=== PATIENT | female | born 1965 | race Caucasian/White ===

== ENCOUNTER 2018-12-03 07:12 | Day surgery (SDC) | payer OTHER ==
[2018-12-03] VITALS (10 sets, daily range): BP systolic 90–153; BP diastolic 57–79; PULSE 62–75; RESP 10–18; Ht 157.5 cm; Wt 81.8 kg
[~2018-12-03] VITALS: Ht 157.5 cm; Wt 81.8 kg
[~2018-12-03 07:12] MED LIST: CEFAZOLIN 2 GM/50 ML (PMX) 50 ML IVPB SCH; SOD CHLORIDE 0.9% 1,000 ML IV ONE
[2018-12-03] MEDS ORDERED: ACETAMINOPHEN 500 MG TAB PO ONE (07:30)
[2018-12-03] MEDS ORDERED: AMLO5TAB4 PO (08:10)
[2018-12-03] MEDS ORDERED: BENA1TAB PO (08:10)
[2018-12-03] MEDS ORDERED: RANI-513 PO (08:11)
--- NOTE | 2018-12-03 10:27 | PREAC ---
Date/Time of Note Date/Time of Note DATE: 12/03/18 TIME: 10:26 Anesthesia Eval and Record Evaluation Time Pre-Procedure Interview DATE: 12/03/18 TIME: 10:26 Age 53 Sex female NPO: 8 hrs Preoperative diagnosis L SQ control device Planned procedure L SQ control device excision under fluoroscopy Past Medical History Past Medical History: Includes Cardio: HTN GI: Obesity Surgery & Anesthesia Issues No known issue Meds Anticoagulation: No Beta Lu within 24 hr: No Reason Beta Lu not given: Pt. not on B-Lu Reported Medications Ranitidine Hcl* (Ranitidine Hcl*) 75 Mg Tablet, 75 MG PO BID PRN for HEARTBURN, #60 TAB 12/03/18 Amlodipine Besylate* (Norvasc*) 5 Mg Tablet, 5 MG PO DAILY, TAB 12/03/18 Benazepril/Hydrochlorothiazide (Lotensin Hct 10-12.5 mg Tablet) 1 Each Tablet, 1 TAB PO DAILY, #30 TAB 12/03/18 Current Medications Cefazolin Sodium/ Dextrose 50 ml @ 100 mls/hr PRE-OP IVPB ; Start 12/03/18 at 06:00; Stop 12/03/18 at 15:00 Sodium Chloride 1,000 ml @ 75 mls/hr [id number] ONCE IV Last administered on 12/03/18at 08:54; Admin Dose 75 MLS/HR; Start 12/03/18 at 06:00; Stop 12/03/18 at 19:19 Meds reviewed: Yes Allergies Coded Allergies: No Known Allergy (Unverified , 12/03/18) Allergies Reviewed: Yes Labs/Studies Labs Reviewed: Reviewed by anesthesiologist Result Diagram: 12/03/18 0904 12/03/18 0904 Laboratory Tests 12/03/18 09:04 test: Negative Pre-procedure Exam Last vitals Vital Signs Date Temp Pulse Resp B/P (MAP) Pulse Ox O2 O2 Flow FiO2 Time Delivery Rate 12/03/18 95.9 75 16 153/79 98 Room Air 09:07 (103) Airway: Adequate mouth opening, Adequate thyromental dist Mallampati: Mallampati II Teeth: Normal Lung: Normal Heart: Normal ASA Physical Status ASA physical status: 2 Emergency: None Planned Anesthetic General/MAC: LMA Pre-operative Attestations Prior to commencing anesthesia and surgery, the patient was re-evaluated, there was verification of: *The patient's identity *The results of appropriate recent lab work and preoperative vital signs *The above evaluation not changing prior to induction *Anesthetic plan, risk benefits, alternative and complications discussed with patient/family; questions answered; patient/family understands, accepts and wishes to proceed. Fashion Artist used AARTI MILLER December 03, 2018 10:27
[2018-12-03] MEDS ORDERED: ONDANSETRON 4 MG INJ IV PRN (10:30)
[2018-12-03] MEDS ORDERED: LABETALOL HCL 20MG INJ IV PRN (10:30)
[2018-12-03] MEDS ORDERED: DIPHENHYDRAMINE 50 MG INJ IV PRN (10:30)
[2018-12-03] MEDS ORDERED: morphine (1 MG/ML) 10ML SYRINGE IV PRN ×2 (10:30)
[2018-12-03] MEDS ORDERED: HYDROmorphONE 1 MG/5 ML IV SYRINGE IV PRN ×3 (10:30)
[2018-12-03] MEDS ORDERED: FENTAnyl 50 MCG/ML VIAL IV PRN ×2 (10:30)
[2018-12-03] MEDS ORDERED: MEPERIDINE 25 MG INJ IV PRN (10:30)
[2018-12-03] MEDS ORDERED: OXYCODONE/ACETAMINOPHEN (5/325) TAB PO PRN ×2 (10:30)
[2018-12-03] MEDS ORDERED: ALBUTEROL 0.083% (NEB) 2.5 MG/3 ML AMP HHN PRN (10:30)
[2018-12-03] MEDS ORDERED: LIDOCAINE 2% (SDV) 5 ML INJ ONE (10:32)
[2018-12-03] MEDS ORDERED: PROPOFOL 40 ML ONE (10:32)
[2018-12-03] MEDS ORDERED: CEFAZOLIN 1 GM INJ ONE (10:32)
[2018-12-03] MEDS ORDERED: FAMOTIDINE 20 MG INJ ONE (10:33)
[2018-12-03] MEDS ORDERED: MIDAZOLAM 1 MG/ML 2 ML INJ ONE (10:33)
[2018-12-03] MEDS ORDERED: ONDANSETRON 4 MG INJ ONE (10:33)
[2018-12-03] MEDS ORDERED: FENTAnyl 50 MCG/ML VIAL ONE (10:33)
--- NOTE | 2018-12-03 11:03 | SIPON ---
Date/Time of Note Date/Time of Note DATE: 12/03/18 TIME: 11:02 Operative Report Preoperative Diagnosis Need for removal of subcutaneous control device left antecubital fossa Postoperative Diagnosis Same Operation/Procedure Performed Removal of subcutaneous control device left antecubital fossa under fluoroscopy Surgeon see signature line butcher assistant Dr Pan Anesthesia: general Estimated blood loss: 0 - 10 ml's Transfusion Required none Specimen Subcutaneous control device gross only Grafts/Implants none Complications none DONALDO GUERRERO MD December 03, 2018 11:03
--- NOTE | 2018-12-03 11:20 | PAC ---
Date/Time of Note Date/Time of Note DATE: 12/03/18 TIME: 11:18 Post-Anesthesia Notes Post-Anesthesia Note Last documented vital signs Vital Signs Date Temp Pulse Resp B/P Pulse Ox O2 O2 Flow FiO2 Time (MAP) Delivery Rate 12/03/18 95.9 98.1 75 67 16 16 153/79 98 100 Room 09:07 111 (103) 96 Air face mask 5L Activity: WNL Respiratory function: WNL Cardiovascular function: WNL Mental status: Baseline Pain reasonably controlled: Yes Hydration appropriate: Yes Nausea/Vomiting absent: Yes AARTI MILLER December 03, 2018 11:19
--- NOTE | 2018-12-03 16:21 | OPR ---
DATE OF OPERATION: 12/03/2018 PREOPERATIVE DIAGNOSIS: Subcutaneous control device, left in antecubital fossa, need for remov al. POSTOPERATIVE DIAGNOSIS: Subcutaneous control device, left in antecubital fossa, need for kerrie sally. PROCEDURE: Removal of subcutaneous control device, left antecubital fossa. The object was rem shelbi under fluoroscopic guidance. ANESTHESIA: General. ANESTHESIOLOGIST: Tosin Cowart CRNA SURGEON: Efrem Arceo MD REAL ESTATE TRANSACTION COORDINATOR: Carrington Pan MD INDICATIONS FOR PROCEDURE: The patient is a 53-year-old female who previously had an implanted subcu taneous control device in the left antecubital fossa. She requested excision. She consented a nd was scheduled for surgery. DESCRIPTION OF PROCEDURE: The patient was brought to the operating theater, placed under general ane sthesia. The left arm was prepped and draped in usual sterile fashion. Previous surgical incisional scar was reincised with a 10-blade scalpel directly over the palpable subcutaneous mass. The subcut aneous tissue was dissected with sharp dissection, the mass was identified and then gently dissected from surrounding tissue. It was removed and sent for gross pathologic analysis. The fluoroscopy was then used to confirm that there were no residual fragments within the wound. The wound was then irr igated. Residual bleeding was controlled with cautery. The area was infiltrated with 0.5% Marcaine local anesthetic with epinephrine and the skin was then closed with 5-0 PDS sutures in subcuticular f ashion and benzoin and Steri-Strips were applied. The patient tolerated procedure well. The estimat ed blood loss was 5 mL. There were no complications and the patient was transported in [facility] to the recovery room. Dictated By: EFREM ARCEO MD TL/MORE Conf#: [id number] DID#: [id number]
--- NOTE | 2018-12-06 09:36 | RADRPT ---
Vent Rate: 62 bpm RR Interval: 972 msec KS Interval: 166 msec QRS Duration: 93 msec QT Interval: 422 msec QTC Interval: 428 msec P-R-T [place]: 33 - 4 - 32 degrees Sinus rhythm...normal P axis, V-rate 50- 99 Electronically Signed By: Ilir Guerrier
== END 2018-12-03 12:35 | disposition home or self-care (01) ==
LOC: SDS 07:12
PROVIDERS: ATTEND Surgery Surgical Oncology
DX: Z30.46 Encounter for surveillance of implantable subdermal contraceptive (principal); I10 Essential (primary) hypertension
CPT/HCPCS: 11982; 71045; 73060; 80053; 84703; 85025; 85610; 85730; 88300; 93005; J0690; J2250; J2405; J3010